=== PATIENT | female | born 1940 | race Hispanic/Latino ===

== ENCOUNTER 2017-09-30 17:44 | Inpatient (IN) | payer MEDICARE ==
[2017-09-30] MEDS ORDERED: Acetaminophen 500 MG TAB ONE (18:24)
[2017-09-30 18:33] LABS: #Basophils 0.1 thou/uL (0.0-0.2); #Lymphocytes 1.3 thou/uL (1.20-3.40); #Monocytes 0.6 thou/uL (0.11-0.59); #Neutrophils 9.8 thou/uL (1.40-6.50); %Basophils 0.6 % (0.0-1.0); %Eosinophils 0.2 % (0.0-10.0); %Lymphocytes 10.9 % (21.0-51.0); %Monocytes 5.1 % (0.0-10.0); %Neutrophils 83.1 % (42.0-75.0); Hemoglobin 8.6 g/dL (12.0-16.0); Mean Corpuscular HGB CONC 32.1 g/dL (32.0-36.0); Mean Corpuscular Hemoglobin 26.2 pg (27.0-31.0); Mean Corpuscular Volume 81.7 fL (78.0-98.0); Mean Platelet Volume 7.7 fL (7.4-10.4); Platelet Count 430 thou/uL (130-400); Red Blood Cell (RBC) Count 3.29 mill/uL (4.20-5.40); White Blood Cell (WBC) Count 11.8 thou/uL (4.8-10.8)
[2017-09-30 18:55] LABS: ALT (SGPT) Less than 7 U/L (8-55); AST (SGOT) 11 U/L (5-34); Albumin 3.6 g/dL (3.4-4.8); Alkaline Phosphatase 106 U/L (40-150); Anion Gap 15 mmol/L (10-20); BUN (Urea Nitrogen) 16 mg/dL (9.8-20.1); Bilirubin, Total 0.4 mg/dL (0.2-1.2); CK (CPK) 51 U/L (29-168); Calc. Creatinine Clearance 0 mL/min (70-130); Calcium 8.6 mg/dL (7.8-10.44); Carbon Dioxide 20 mmol/L (23-31); Chloride 105 mmol/L (98-107); Estimated GFR-MDRD 46; Globulin 3.5 g/dL (2.4-3.5); Glucose 105 mg/dL (83-110); Lipase 31 U/L (8-78); Potassium 3.8 mmol/L (3.5-5.1); Protein, Total 7.1 g/dL (6.0-8.3); Sodium 136 mmol/L (136-145)
[2017-09-30] MEDS ORDERED: cefTRIAXone\\ROCEPHIN 2 GM VIAL ONE (18:58)
[2017-09-30 18:59] LABS: CKMB 0.8 ng/mL (0-6.6); Troponin I 0.014 ng/mL (< 0.028)
--- NOTE | 2017-09-30 20:15 | RAD ---
AP VIEW OF THE CHEST: 09/30/17 INDICATION: History of shortness of breath. COMPARISON: Prior exam dated 09/23/06. FINDINGS: There is interstitial and air space opacity seen within the left mid lung and left lower lobe suspici ous for possible pneumonia. Recommend two view chest radiograph for further evaluation. The visualize d right lung is clear. Mild cardiomegaly is stable. No acute osseous abnormality is evident. IMPRESSION: Air space opacity within the left lung. Two view chest radiograph recommended. POS: NICK
[2017-09-30] MEDS ORDERED: Azithromycin 500 MG VIAL ONE (20:34)
[2017-09-30] MEDS ORDERED: Ondansetron ODT 4 MG TAB SL PRN (23:15)
[2017-09-30] MEDS ORDERED: Acetaminophen 325 MG TAB PO PRN (23:15)
[2017-09-30] MEDS ORDERED: Ondansetron HCl/PF 4 MG/2 ML Vial IVP PRN (23:15)
[2017-10-01 00:13] VITALS: BMI 31.0
[2017-10-01] MEDS ORDERED: Acetaminophen 325 MG TAB PO PRN (07:46)
[2017-10-01] MEDS ORDERED: Dextrose 50% Abboject 50 ML SYRINGE SLOW IVP PRN (07:52)
[2017-10-01] MEDS ORDERED: Dextrose 5% in Water 1,000 ML IV PRN (07:52)
[2017-10-01] MEDS ORDERED: Insulin Regular 300 UNITS/3 ML VIAL SC PRN (07:52)
[2017-10-01] MEDS: cefTRIAXone\\ROCEPHIN 1 GM in Sodium Chloride 0.9% 100 ML IVPB SCH (08:32)
[2017-10-01 08:42] LABS: CKMB 0.9 ng/mL (0-6.6); Troponin I 0.013 ng/mL (< 0.028)
[2017-10-01] MEDS ORDERED: DILTIAZEM HCL 90 MG PO SCH (09:00)
--- NOTE | 2017-10-01 09:40 | HP ---
HISTORY OF PRESENT ILLNESS: The patient is a 77-year-old female. She apparently was raking her yard yesterday where she became short of breath with exertion. The patient stated that she had shortness of breath while exerting herself just simply raking her yard. She states she has to stop a nd rest. This did relieve her shortness of breath. She denies any chest pain. She did note that he r neck did hurt during this time. She did not note any productive cough, fever, nausea, vomiting, di arrhea. She notes that at around 3 to 4 o'clock she became more short of breath just walking a short distance. She was brought to the emergency room. She was seen and evaluated in the ER. Her EKG di d reveal sinus tachycardia. She was found to be slightly anemic. Chest x-ray, possible left lower l obe pneumonia. Nonetheless, she was admitted to the hospital, begun on pneumonia protocol treatment with ceftriaxone and Zithromax. She notes no prior history of atherosclerotic coronary artery diseas e. She once again denies any cough, wheezing, no nasal congestion, runny nose, otherwise noted. She is now resting comfortably. She has noted no prior shortness of breath prior to this episode. ALLERGIES: She has no known allergies. CURRENT MEDICATIONS: Aspirin 81 mg daily, lovastatin 20 mg daily, metformin 1000 mg b.i.d., diltiaze m 90 mg t.i.d. PAST MEDICAL HISTORY: Positive for type 2 diabetes mellitus, hypertension, hypercholesterolemia. PAST SURGICAL HISTORY: Positive for cholecystectomy, right knee replacement surgery. SOCIAL/PERSONAL HISTORY: She is a . Her recently not too long ago. She is a form er smoker. She has not smoked in more than 10 years. Her children do live nearby. FAMILY HISTORY: Positive for atherosclerotic coronary artery disease and renal disease. REVIEW OF SYSTEMS: GASTROINTESTINAL: Negative. GENITOURINARY: Negative. CARDIOVASCULAR: Positive as above. RESPIRATORY: Positive as above. PHYSICAL EXAMINATION: VITAL SIGNS: Her temperature is 99.7, pulse 86, respirations 16, BP 146/66. GENERAL: She is alert, active, in no acute distress. HEENT: Normocephalic, atraumatic. Sclerae and conjunctivae clear. NECK: Supple, full range of motion, no masses. LUNGS: Clear. HEART: Reveals a regular rate and rhythm, no murmurs, gallops or rubs. ABDOMEN: Soft, nontender, bowel sounds are active. No hepatosplenomegaly is noted. There is no sean dence of rebound or guarding noted. EXTREMITIES: No clubbing, edema or cyanosis noted at this time. LABORATORY AND X-RAY FINDINGS: White blood count 11.8, hemoglobin 8.6, hematocrit 26.9. Sodium 136, potassium 3.8, chloride 105, CO2 of 20, BUN 16, creatinine 1.16, troponin 0.014 x1. Chest x-ray was fairly unremarkable. There is a suspicious opacity to the left lower lobe, possible pneumonia. EKG reveals sinus tachycardia without acute changes. IMPRESSION: 1. This is a 77-year-old female who presents with dyspnea upon exertion, this to me seems t o be more compatible with possible angina or anginal equivalent. 2. Anemia. 3. Some possibility or probability of pneumonia. 4. Type 2 diabetes mellitus. PLAN: 1. Discussed the findings with the patient. Feel the need for starting a cardiac workup. We will c onsult Cardiology, go ahead and schedule a nuclear stress testing. We will get additional cardiac en zymes prior to stress testing. 2. We will continue treatment with Zithromax and ceftriaxone at this time. 3. Further treatment will be dictated by response to cardiac stress test.
[2017-10-01] MEDS ORDERED: Regadenoson 0.4 MG/5 ML SYRINGE ONE (11:22)
[2017-10-01] MEDS: Aspirin 81 mg Enteric Coated Tablet PO SCH (12:56)
[2017-10-01] MEDS: metFORMIN 500 MG TAB PO SCH ×2 (12:56→16:55)
[2017-10-01] MEDS: Azithromycin 500 MG in Sodium Chloride 0.9% 250 ML 250 ML IVPB SCH (12:56)
--- NOTE | 2017-10-01 13:16 | NM ---
NUCLEAR MEDICINE MYOCARDIAL PERFUSION EVALUATION: CLINICAL HISTORY: A 77-year-old female. Dyspnea. RADIOPHARMACEUTICAL: Technetium 99m sestamibi, 30.1 millicuries if, administered at stress and rest. FINDINGS: There is reduced activity involving the mid to distal anteroseptum and the apex, which relatively fix ed. Evaluation of gated imaging does reveal hypokinesia of this region, which is supposed upon a dif fuse dyskinesia/hypokinesia, with a reduced LVEF of 30%. There is associated chamber enlargement of the left ventricle. IMPRESSION: 1. Finding most consistent with an area of scar, involving the mid to distal anterior septum, extend ing to the apex. No definite significant reversible defect to indicate ischemia. 2. Reduced left ventricular systolic function, with diminished left ventricular ejection fraction at 30%. POS: NICK
[2017-10-01] MEDS ORDERED: Furosemide 20 MG/2 ML VIAL SLOW IVP SCH (14:45)
[2017-10-01] MEDS ORDERED: Potassium Chloride 20 MEQ TAB PO SCH (14:45)
[2017-10-01] MEDS ORDERED: Carvedilol 3.125 MG TAB PO SCH (15:00)
--- NOTE | 2017-10-01 15:15 | CON ---
ADDENDUM DATE OF CONSULTATION: 10/01/2017 DATE OF ADMISSION: 09/30/2017 Please refer the notes already dictated by my nurse practitioner. INDICATION FOR CONSULTATION: A 77-year-old female with shortness of breath and abnormal stress test. HISTORY OF PRESENT ILLNESS: This lady, 77 years old, who has been out raking her yard, have been rel atively active in the past, had no history of coronary artery disease that we are aware of. Had no c ardiac problems in the past. She was out raking, came back because she was short of breath and fatig ued and she also had gone to the bathroom, walking back from the bathroom also noticed that she was s hortness of breath and she presented to the hospital. She also has a history of hypertension, hyperc holesterolemia, and diabetes. She did smoke in the past, but stopped about 20 years ago, previous to that smoked for about 10 years, about a pack a day. She otherwise has been relatively stable, but s he did subsequently come in and had a stress test, which shows what appears to be an old anterior api mukul scar. There was no evidence of ischemia at this time. No reversible ischemia. Ejection fractio n estimated about 30%. Her hemoglobin is about 8.6, hematocrit 26.9. Renal function shows a creatin ine of 1.16 with a BUN of 16. Cardiac enzymes are negative for any evidence of myocardial infarction . It is quite possible that she has suffered a myocardial infarction in the past and was a silent my ocardial infarction. Certainly this is not unheard of in someone who is a diabetic, but with a decre ased ejection fraction what appears to be a scar over the mid to distal anterior septum extending to the apex. I would advise her to undergo cardiac catheterization; however, she does appear to be sign ificantly anemic and given the fact that her hemoglobin is only 8, we may need to wait until the hemo globin is a little bit better prior to proceeding with a cardiac catheterization as this does not gabriella ear to be any acute issue in this patient. Her EKG shows a left bundle branch block, but a sinus rhy thm. For her past medical history, social history, family history, allergies, medications, please refer to the notes already dictated. PHYSICAL EXAMINATION: GENERAL: Reveals an elderly female who is in only mild distress at this time. She does appear to be short of breath during examination. VITAL SIGNS: Blood pressure 144/70, heart rate is in the 100s to 110s. She is afebrile, respiratory rate 16. HEENT: Shows head to be normocephalic and atraumatic. Carotid pulses are present. I did not hear a ny significant bruits. CHEST: Clear to auscultation without any rales, rhonchi or wheezing; however, breath sounds are some what decreased throughout. CARDIOVASCULAR: She has a slight tachycardia and appears to have an S3. Would certainly be compatib le with cardiomyopathy. ABDOMEN: Soft and nontender. Positive bowel sounds are present. EXTREMITIES: Show no clubbing, cyanosis or edema. I cannot palpate pedal or popliteal pulses. Femo ral pulses are decreased. I did not hear any significant bruits. NEUROLOGIC: The patient appears to be intact. IMPRESSION: 1. Probable silent myocardial infarction which is remote, but with a new onset congestive heart fail ure symptoms with shortness of breath and also left bundle branch block are uncertain as to whether o r not this is new or whether or not this is an ongoing problem for this lady with her diabetes. I stringer ve suggested a cardiac catheterization, but may need to wait until the hemoglobin is at least 10. We tried to determine whether or not why she has a hemoglobin of 8.6 and she may need some stool guaiac s performed to determine whether or not she has any ongoing gastrointestinal blood loss. Certainly s he needs to undergo heparin stent placement. She will need to have oral anticoagulation or antiplate let medication, which would make her bleeding symptoms worse. We discussed this with her primary car e physician, Dr. Ribeiro. 2. History of diabetes. This will be dealt with by primary care service. 3. Hypertension is under very good control at this time. 4. History of tobacco abuse. She has been abstinent for over 20 years. We will continue on her pre sent medications. She also has a history of what she says of asthma, shortness of breath. This may be ongoing problem and she is requesting something for breathing, but this may not be due to asthma, but appears to be more of perhaps even cardiac asthma in this patient, but I did not hear any wheezin g at this time, we will continue to follow the patient. I will obtain an echocardiogram for evaluati on, also the valvular structures and the left ventricular systolic function also.
--- NOTE | 2017-10-01 15:59 | RAD ---
CHEST TWO VIEWS: 10/01/17 HISTORY: Chest pain. Dyspnea. COMPARISON: 09/30/17. FINDINGS: The cardiac silhouette is unremarkable. Pulmonary vasculature is more engorged than on the prior stud y with increasing bilateral perihilar and left basilar infiltrate. Lungs are otherwise hyperinflated. Small amount of bilateral pleural fluid. Mediastinum is midline with aortic calcification. No eviden ce of pneumothorax. IMPRESSION: Pulmonary vascular congestion, possibly with superimposed left posterior basilar infiltrate. Clinical correlation regarding other signs and symptoms of left basilar pneumonitis is required. Please consi christian close radiographic followup after medical treatment to evaluate for clearing. Atherosclerosis. COPD. POS: NICK
[2017-10-01] MEDS ORDERED: GoLYTELY 4,000 ml Bottle PO SCH (19:00)
--- NOTE | 2017-10-01 19:28 | CON ---
DATE OF CONSULTATION: 10/01/2017 PRIMARY CARE PHYSICIAN: Dr. Fletcher Ribeiro. PRIMARY LABORATORY MACHINIST: Dr. Yesi Moore REFERRING PHYSICIAN: Dr. Fletcher Ribeiro. REASON FOR CARDIOLOGY CONSULT: Dyspnea. HISTORY OF PRESENT ILLNESS: Ms. Bowden is very pleasant 77-year-old female with a significant history of hypertension, hyperlipidemia, type 2 diabetes, and rheumatoid arthritis. She lives with her daughter and stayed busy baby sitting her her grandchildren and great grandchildren until yesterday. Yesterday, when she was walking at the outside yard, she started having shortness of breath which was getting worse. Due to the symptoms, the patient's daughter brought the patient to the emergency department for further evaluation and treatment. She was found to have pneumonia. Moreover, due to history of diabetes, hypertension, and ex-smoker, the patient underwent stress test today, which shows old anterior apical scar, but no evidence of reversible ischemia. However, the patient's ejection fraction shows 30%. Prior to this admission, the patient has a history of hypertension, hypercholesteremia, hyperlipidemia, diabetes type 2, and ex-smoker. She never has any cardiac workup in the past. The patient was found to have a hemoglobin level at 8.6. She reported that she has not checked her blood work for a couple of years, but she states that she loves eating ice every day. She states she can finish big bag of ice within 1 day. The patient denies dizziness, lightheadedness, palpitation. No fluttering or chest pain or discomfort in her chest, numbness to the left upper arm, or any other cardiac complaints prior to this admission and during the initial Cardiology consult assessment. PAST MEDICAL HISTORY: 1. Hypertension. 2. Hyperlipidemia. 3. Diabetes type 2. 4. Rheumatoid arthritis. She uses a cane to walk. PAST SURGICAL HISTORY: 1. Cataract surgery. 2. Right knee replacement. 3. Cholecystectomy. FAMILY HISTORY: The patient's mother has a history of hypertension and congestive heart failure and the all patient's 6 children have medical history of diabetes. Patient's one of sons underwent CABG in 2016. SOCIAL HISTORY: The patient is an ex-smoker. She used to smoke one pack a day. She quit about 20 years ago. She denied ETOH abuse or illicit drug abuse. She drinks at least 12 cup of coffee a day and eating ice all day, but she is relatively active, she usually do babysit her grand and great grandchildren at home. ALLERGIES: She is allergic to SHELLFISH. HOME MEDICATIONS: 1. Metformin 1000 mg twice a day. 2. Lovastatin 40 mg once a day. 3. Diltiazem 90 mg 3 times a daily. 4. Aspirin 81 mg once a day. REVIEW OF SYSTEMS: The patient review of systems was negative, unless otherwise mentioned in the HPI. She is very active. She denies any blood in the stool or urine. She used a cane to walk. PHYSICAL EXAMINATION: VITAL SIGNS: Blood pressure 144/70, pulse is 118, sinus tachycardia, temperature 98.2, respiratory 18, O2 sat 94% on room air. GENERAL: Well-nourished, well-developed in no acute distress. HEAD: Atraumatic, normocephalic. HEENT: Eyes, extraocular muscle movement intact. She said she had to change her glasses. ENT: Mouth lissette and the oral mucosa moist without lesion. NECK: No JVD. Neck supple. Normal range of motion. Carotid pulses are present without bruits or thrills. LUNGS: Clear to auscultation bilaterally. No rub or rales noted. CARDIOVASCULAR: regular rhythm and rate. Normal S1, S2. There is no S3, S4. No murmur; however S3 noted. EXTREMITIES: There are 2+ pulses in bilateral lower extremities and no edema or no discoloration to the bilateral lower extremities. ABDOMEN: Nontender, no mass to palpate, nondistended. Bowel sounds are present. MUSCULOSKELETAL: The patient is able to move all extremities. SKIN: No lesions or bruise noted. NEUROLOGIC: Patient is alert x4 and nonfocal. LABORATORY DATA: A 12-lead EKG in ER showed sinus tachycardia with left bundle branch block. Chest x-ray, the patient's chest x-ray on 09/30/2017 shows airspace opacity within the left lung and the patient just had two view chest x- ray and results are pending at this moment. The patient's stress test shows the score to the mid to distal anterior septum extended to the apex, but no significant reversible ischemia with an ejection fraction of 30%. ASSESSMENT: 1. Dyspnea on exertion. This is possible due to acute on chronic systolic congestive heart failure. Echocardiogram was ordered, but that result is pending at this moment. Dr. Moore suggested this patient to have a cardiac catheterization; however, due to low hemoglobin level and elevated creatinine level, the patient is not a good candidate for the cardiac catheterization at this moment, The patient's BNP was more than 3000 today. The patient received the 10 mg IV Lasix today. Although, the patient denies any shortness of breath or edema to the lower extremity or abdomen bloating, may be beneficial to schedule Lasix or diuretics as appropriate if the patient's symptoms beginning worsen. The patient is on carvedilol on this moment, but no ACACIA inhibitor at this moment due to elevated creatinine level. 2. Hypertension. The patient's blood pressure is very elevated with tachycardia. The diltiazem was resumed from today and Coreg 3.125 mg twice a day was started from today. 3. Diabetes type 2. The patient on a.c. and h.s. blood glucose check with sliding scale insulin order with metformin. 4. Hyperlipidemia. The patient is on atorvastatin 10 mg once a day. 5. Pneumonia. The patient's one view chest x-ray reviewed, the patient had a possible pneumonia to the left lung. The patient just had 2-view chest x-ray and the result is pending at this moment. She is on antibiotic which was managed by the patient's primary care doctor. Thank you very much for allowing the Cardiology Service to participate in the care of this patient. We will follow along the doctors and make a medical recommendation as appropriate. HUGH
[2017-10-01] MEDS ORDERED: LOVASTATIN 40 MG PO SCH (21:00)
--- NOTE | 2017-10-01 21:34 | CON ---
DATE OF CONSULTATION: 10/01/2017 GI INPATIENT CONSULTATION NOTE REQUESTING PHYSICIAN: Dr. Fletcher Ribeiro. REASON FOR CONSULTATION: Anemia. HISTORY OF PRESENT ILLNESS: Simeon Bowden is a very pleasant 77-year-old woman, who was admitted to the hospital last night. She reports symptoms came on fairly acutely yesterday. She was in the mid dle of her chores around the house and suddenly started to have dyspnea on exertion. This was alarmi ng to her and prompted her presentation. This was not associated with any cough or any fever, no [place], vomiting or diarrhea. In the ER, she was found to be in sinus tachycardia and a chest x-ray tima wed probable left-sided pneumonia. She was started on antibiotics. Other laboratory studies were re markable for hemoglobin of 8.6. Note, hemoglobin was 9.7 in February of this year. This is a normocy tic anemia with MCV 81.7. The patient has been receiving antibiotics. She has been seen by Cardiolo gy and had a nuclear stress test demonstrating a left ventricular ejection fraction of 30%, but no ev idence of reversible ischemia, possible prior infarct. Cardiac catheterization is being considered. After further anemia workup and stabilization, echocardiogram is planned. The patient has been n.p. o. today. She tells me she has never had an EGD or colonoscopy. She has never had any gastrointestinal symptom s. She denies any abdominal pain, nausea, vomiting, diarrhea or constipation. Her bowel movements a re normal. She denies any melena or hematochezia or any other overt bleeding from anywhere. She is not on any special diet. She takes aspirin 81 mg daily, but no other antiplatelet agents or anticoag ulation. REVIEW OF SYSTEMS: Full review of systems including constitutional, head, eyes, ears, nose, throat, GI, , cardiovascular, respiratory, musculoskeletal, and neurologic systems is negative except as no christian in the HPI. PAST MEDICAL HISTORY: Diabetes, type 2; hypertension; hyperlipidemia; cholecystectomy; right knee re placement. ALLERGIES: No known drug allergies. OUTPATIENT MEDICATIONS: Aspirin 81 mg daily, lovastatin, metformin, diltiazem. SOCIAL HISTORY: The patient quit smoking over 10 years ago. She is recently . Her son is wi th her here today. FAMILY HISTORY: Negative for gastrointestinal malignancy. PHYSICAL EXAMINATION: VITAL SIGNS: Temperature 98.2, pulse 118, blood pressure 144/70, 94% oxygen saturation on room air. GENERAL: Elderly 77-year-old woman, sitting up in bed comfortably, in no distress. SKIN: She is a bit pale, no jaundice, no rash visible or palpable. EYES: No scleral icterus. Extraocular movements intact. ENT: Mucous membranes moist, no oral lesions. LYMPH: No submandibular or supraclavicular lymphadenopathy. THYROID: Nontender to palpation. HEART: Regular rate and rhythm. LUNGS: Some decreased breath sounds in the left side, but no wheezing, no respiratory distress. ABDOMEN: Bowel sounds present, soft and nontender to palpation throughout. No masses or organomegal y appreciated. EXTREMITIES: No peripheral edema. VESSELS: Radial pulses 2+ bilaterally. NEUROLOGICAL: Cranial nerves II-XII intact bilaterally. No focal deficits. LABORATORY DATA: Hemoglobin 8.6, this is down from 9.7 in February of this year; MCV is just normal a t 81.7; WBC 11.8; platelets 430. Sodium 136, potassium 3.8, BUN 16, creatinine 1.16. Lactic acid 1. 1, troponin negative. Lipase 31. BNP is elevated to 3215. LFTs are all normal with total bilirubin 0.4, alkaline phosphatase 106, AST 11, ALT 7, albumin 3.6. IMAGING STUDIES: Chest x-ray shows airspace opacity in the left lung field. Nuclear stress test dem onstrated left ventricular ejection fraction 30%. There is what appears to be apical scarring, but n o reversible ischemia. ASSESSMENT AND PLAN: 1. Anemia, unclear chronicity and etiology, with no primary gastrointestinal symptoms or overt gastr ointestinal bleeding. 2. Left-sided pneumonia, on antibiotics. 3. New onset congestive heart failure, being worked up by Cardiology. The etiology and chronicity of her anemia are unclear. The MCV is on the low side of normal. I will order iron studies, vitamin B12 and folic acid levels. There has been no overt gastrointestinal ble eding, but occult gastrointestinal bleeding lesion would certainly be high on the differential. She has never undergone endoscopy before. She has been n.p.o. today, so I would recommend bowel preparat ion this evening followed by EGD and colonoscopy tomorrow. The patient understands and agrees to pro ceed. Thank you for the consultation. Please call any time with questions or concerns.
[2017-10-01] MEDS: Atorvastatin Calcium 10 MG TAB PO SCH (21:35)
[2017-10-02 06:04] LABS: Anion Gap 12 mmol/L (10-20); BUN (Urea Nitrogen) 17 mg/dL (9.8-20.1); Calc. Creatinine Clearance 54 mL/min (70-130); Calcium 8.4 mg/dL (7.8-10.44); Carbon Dioxide 25 mmol/L (23-31); Chloride 101 mmol/L (98-107); Estimated GFR-MDRD 49; Glucose 93 mg/dL (83-110); Iron 11 ug/dL (50-170); Iron Binding Capacity, Total 311 mcg/dL (265-497); Potassium 3.6 mmol/L (3.5-5.1); Sodium 134 mmol/L (136-145)
[2017-10-02 06:35] LABS: Folate (Folic Acid) 12.8 ng/mL (7.0-31.4)
[2017-10-02] MEDS: Carvedilol 3.125 MG TAB PO SCH ×2 (07:42→17:45)
[2017-10-02] MEDS: cefTRIAXone\\ROCEPHIN 1 GM in Sodium Chloride 0.9% 100 ML IVPB SCH (07:42)
--- NOTE | 2017-10-02 07:59 | PRG ---
DATE OF SERVICE: 10/02/2017 Ms. Bowden is resting comfortably. She has had no chest pain or shortness of breath. PHYSICAL EXAMINATION: VITAL SIGNS: Temperature 98.3, BP 119/58. LUNGS: Clear. HEART: Reveals no murmur. LABORATORY: Sodium 134, potassium 3.6, BUN 1.09. B12 109, folic acid is 12.8. Stool guaiac is nega tive. IMPRESSION: This is a 77-year-old female who presented with shortness of breath, the most likely et iology of this is now cardiac. She also has anemia at this time. PLAN: She will be undergoing colonoscopy and EGD today to further evaluate her anemia. She is also B12 deficient. Further recommendations regarding her cardiac status will be made once her colonoscop y and EGD are completed.
[2017-10-02] MEDS: metFORMIN 500 MG TAB PO SCH ×2 (09:12→16:00)
[2017-10-02] MEDS ORDERED: Lidocaine Viscous Sol 2% 15 ml UD Cup ONE (10:39)
[2017-10-02] MEDS ORDERED: Lidocaine 1% PF 5 ML VIAL ONE (11:35)
[2017-10-02] MEDS ORDERED: PROPOFOL 200 MG/20 ML VIAL ONE (11:35)
--- NOTE | 2017-10-02 12:00 | PDOC.CTH ---
<Lia Baldwin - Last Filed: 10/02/17 11:58> Cardiology Progress Note - Subjective The pt seen and examined. No overnight events. No cardiac complaints. The questions related to CHF were answered to the pt and family. - Objective Vital Signs Temp Pulse Resp BP BP Pulse Ox 10/02/17 07:39 98.9 F 96 19 138/88 95 10/02/17 04:17 98.3 F 82 20 119/58 L 97 Weight 169 lb 11.2 oz 10/01/17 10/02/17 10/03/17 06:59 06:59 06:59 Intake Total 480 1430 Output Total 500 Balance -20 1430 - Physical Examination General/Neuro: alert & oriented x3 Neck: no JVD present Lungs: CTA Heart: RRR Abdomen: soft Extremities: other: (No edema) - Telemetry Telemetry Rhythm: SR 60s - Labs Result Diagrams: 09/30/17 18:22 10/02/17 05:28 Troponin/CKMB CK-MB (CK-2) 0.9 ng/mL (0-6.6) 10/01/17 08:07 Troponin I 0.013 ng/mL (< 0.028) 10/01/17 08:07 - Assessment/Plan 1. Acute on chronic systolic HF - stable with RA. On Bblocker. Start Lisinopirl 2.5mg qd from today. Possible start diuretic. Echo result is pending at this moment. 2. Abnormal stress test result - Stress test on 10/01/17 showed old anterior scar, no evidence of ischemia, and EF 30%. Holding Cardiac cath due to Hgb 8.6. She is on Bblocker, ASA, and Statin. Will start Lisinopril 2.5mg qd. 3. HTN - Will start Lisinopril 2.5mg qd. 4. Hyperlipidemia - on Statin 5. DM type 2 - managed by PCP 6. Anemia - Plan for EGD and Colonoscopy by GI service. MAR reviewed Review of Systems - Review of Systems Constitutional: reports: no symptoms reported EENTM: reports: no symptoms reported Respiratory: reports: no symptoms reported Cardiac (ROS): reports: no symptoms reported ABD/GI: reports: no symptoms reported : reports: no symptoms reported Musculoskeletal: reports: no symptoms reported <Paul Moore - Last Filed: 10/02/17 13:37> Cardiology Progress Note - Objective Vital Signs Temp Pulse Resp BP BP Pulse Ox 10/02/17 12:18 97.4 F L 74 18 122/56 L 96 10/02/17 07:45 98.9 F 96 19 96 10/02/17 07:39 98.9 F 96 19 138/88 95 10/02/17 04:17 98.3 F 82 20 119/58 L 97 Weight 169 lb 11.2 oz 10/01/17 10/02/17 10/03/17 06:59 06:59 06:59 Intake Total 480 1430 Output Total 500 Balance -20 1430 - Labs Result Diagrams: 09/30/17 18:22 10/02/17 05:28 Troponin/CKMB CK-MB (CK-2) 0.9 ng/mL (0-6.6) 10/01/17 08:07 Troponin I 0.013 ng/mL (< 0.028) 10/01/17 08:07 - Assessment/Plan pt. seen and eval. by me. i agree with the a/P by the ALGOLOGY TEACHER. I think that she is safe to go home with a Life-Vest , get the Hgb. up to at least 10 if possible and twin for an outpt. cath in the next 2-3 weeks.
[2017-10-02] MEDS: Aspirin 81 mg Enteric Coated Tablet PO SCH (12:25)
[2017-10-02] MEDS: Lisinopril 2.5 MG TAB PO SCH (12:25)
[2017-10-02] MEDS: Azithromycin 500 MG in Sodium Chloride 0.9% 250 ML 250 ML IVPB SCH (12:25)
--- NOTE | 2017-10-02 12:51 | OP ---
DATE OF PROCEDURE: 10/02/2017 GI ENDOSCOPY NOTE SURGEON: Segundo Olvera M.D. BIT SHARPENER SURGEON: None. PROCEDURES: 1. Esophagogastroduodenoscopy, diagnostic. 2. Colonoscopy with snare polypectomy. INDICATIONS: 1. Anemia. 2. The patient has never undergone previous EGD or colonoscopy. MEDICATIONS: See anesthesia record. FINDINGS: After discussion of the risks, benefits and alternatives of the procedure, informed consen t was obtained and witnessed. Pre-endoscopic cardiopulmonary examination was satisfactory. Timeout was performed before sedation was achieved. Sedation was achieved with anesthesia assistance in the endoscopy unit. A Pentax adult upper endoscope was placed into the oropharynx and passed through the cricopharyngeus under direct visualization. The esophageal mucosa appeared normal throughout with a normal-appearing Z-line. The endoscope was advanced into the stomach. Forward and retroflexed view s of the entire gastric mucosa were obtained. The gastric mucosa appeared normal. The endoscope was advanced through the pylorus and into the first and second portions of the duodenum, which also appe ared normal. The upper endoscope was completely withdrawn and the patient was repositioned. Digital rectal exam was performed which was unremarkable. A Pentax adult colonoscope was inserted in to the anus and passed forward to the cecum in the usual fashion. The cecal base was identified by t he appendiceal orifice as well as the ileocecal valve. The terminal ileum was not intubated. The co lonoscope was slowly withdrawn in a gradual and circumferential manner with careful examination of th e entire colonic mucosa. The quality of the prep was good. In the cecum, there was a flat spreading polyp 1 cm in diameter. This was completely removed with hot snare and retrieved for pathology. In the ascending colon, there were 3 smaller polyps measuring from 3-5 mm in diameter. These were comp letely removed with hot snare and retrieved for pathology. In the sigmoid colon, there was one more small polyp measuring about 3 mm in diameter. This was completely removed with hot snare and retriev ed for pathology. There was some scattered diverticulosis throughout the colon. Retroflexion in the rectum demonstrated internal hemorrhoids. The colonoscope was then completely withdrawn and the pat ient allowed to recover. The patient tolerated the procedure well. There were no immediate post-pro cedure complications. IMPRESSION: 1. Normal esophagogastroduodenoscopy. 2. Scattered colonic diverticulosis. 3. Internal hemorrhoids. 4. A 1-cm cecal polyp, completely removed with hot snare and retrieved for pathology. 5. Three diminutive polyps in the ascending colon, all completely removed with hot snare and retriev ed for pathology. 6. Diminutive sigmoid polyp, removed with hot snare and retrieved for pathology. RECOMMENDATIONS: 1. Follow up pathology on the colon polyps. 2. Consider surveillance colonoscopy at a 3-year interval, depending on the patient's overall health status. 3. Replace vitamin B12. GI will sign off at this time. Please call back anytime with questions or concerns.
--- NOTE | 2017-10-02 18:26 | PRG ---
DATE OF SERVICE: 10/02/2017 Ms. Bowden is doing well. She had her colonoscopy today. No evidence of any visible lesions will b e there because of her anemia. She spoke with Dr. Moore. She feels like the patient could be d ischarged safely home with LifeVest. She is trying to arrange this. I have modified her medications . I have written her prescription. She will be discharged home tomorrow if everything is going well . I will check her out to Dr. Tena. I have rewritten most of her prescriptions. She is to contin ue on following home medicines, which is metformin 1000 mg p.o. b.i.d., lisinopril 2.5 mg daily. I h ave stopped her diltiazem. I have written other medications that she will be on, hopefully this will take care of. Her followup instructions were given to her granddaughter. She will see me next or Thursday for a vitamin B12 injection. She will be started on ferrous gluconate for replacement therapy.
[2017-10-02] MEDS ORDERED: Carvedilol 3.125 MG TAB PO SCH (21:00)
[2017-10-02] MEDS: Atorvastatin Calcium 10 MG TAB PO SCH (21:06)
[2017-10-03] MEDS ORDERED: Ferrous Gluconate 324 MG TAB PO SCH (08:00)
[2017-10-03] MEDS: Carvedilol 3.125 MG TAB PO SCH ×2 (08:43→18:13)
[2017-10-03] MEDS: metFORMIN 500 MG TAB PO SCH ×2 (08:44→18:13)
[2017-10-03] MEDS ORDERED: Azithromycin 250 MG TAB PO SCH (09:00)
[2017-10-03] MEDS: Aspirin 81 mg Enteric Coated Tablet PO SCH (09:55)
--- NOTE | 2017-10-03 11:53 | PDOC.CTH ---
Cardiology Progress Note - Subjective She is doing well. No new issues or complaints. - Objective Vital Signs Temp Pulse Resp BP BP Pulse Ox 10/03/17 08:50 98.8 F 91 18 138/63 95 10/03/17 04:00 98.4 F 82 16 134/76 96 Weight 169 lb 11.2 oz 10/02/17 10/03/17 10/04/17 06:59 06:59 06:59 Intake Total 1430 Balance 1430 - Physical Examination General/Neuro: alert & oriented x3, NAD Neck: no JVD present Lungs: CTA, unlabored respirations Heart: RRR Abdomen: NT/ND - Telemetry Telemetry Rhythm: NSR - Labs Result Diagrams: 09/30/17 18:22 10/02/17 05:28 Troponin/CKMB CK-MB (CK-2) 0.9 ng/mL (0-6.6) 10/01/17 08:07 Troponin I 0.013 ng/mL (< 0.028) 10/01/17 08:07 - Assessment/Plan 1. Acute on chronic systolic HF - Improved. 2. Possible CAD based of an abnormal stress test. No LHC for now due to anemia. On Bblocker, ACEI, ASA, and Statin. 3. HTN 4. Hyperlipidemia - on Statin 5. DM type 2 - managed by PCP 6. Anemia - Plan for EGD and Colonoscopy by GI service. 7. Dilated Cardiomyopathy. EF at 30% PLAN: - Home in current meds from cardiac perspective once lifevest set up completed.
[2017-10-03] MEDS: Lisinopril 2.5 MG TAB PO SCH (12:21)
[2017-10-03] MEDS ORDERED: Heparin 0 ML ONE (13:54)
[2017-10-03 17:45] VITALS: BP 145/68; TEMP 98.6
--- NOTE | 2017-10-04 19:03 | DIS ---
DATE OF ADMISSION: 09/30/2017 DATE OF DISCHARGE: 10/03/2017 ADMITTING DIAGNOSIS: Shortness of breath. DISCHARGE DIAGNOSES: Acute on chronic systolic heart failure with an EF of 30%-35%, abnormal stress test, hypertension, hyperlipidemia, type 2 diabetes, pernicious anemia with B12 deficiency. CONSULTATIONS: Cardiology and Gastroenterology. HOSPITAL COURSE: The patient is a 77-year-old female, patient of ana [place] ho was having acute onset of chest pain and dyspnea while raking leaves outside. Brought to the [facility] room. In initial workup was assumed to be pulmonary in etiology with slight amount of effusion in the lung bases, but on further investigation, it turned out to be cardiac in origin. The patient was found to be significantly anemic with hemoglobin at 8.6. Ultrasound echo of the heart showed an EF of 30%, had a chemical stress which showed no evidence of ischemia, but did show an old anterior scar with some hypokinesis. The patient had a complete endoscopy with Dr. Olvera. He found no source for any bleeding, but did find her B12 level to be low. She had a couple of polyps removed in her co carmelo, but he said those were could not be a source of bleeding. So, at time of discharge, the patient was given a LifeVest per Dr. Moore' orders. She was started on lisinopril and statin. She was maint ained on her diabetes medicines per Dr. Ribeiro, and at discharge, she was to follow up with Dr. Ribeiro in 1-2 days to start B12 injections and she will follow up with Dr. Moore in 1-2 weeks with the vest. Discharge medicines include the lisinopril 2.5 mg a day, ferrous gluconate 324 mg twice a day . He also stopped her diltiazem and her oral B12 and other medications are metformin 1000 mg twice a day which I believe will be held due to her recent heart failure. She is to follow up with Dr. Ribeiro this week and see Dr. Moore in a week or two.
== END 2017-10-03 20:05 | disposition home or self-care (01) | DRG 293 ==
LOC: ERS 17:44 → 2NO 23:14
PROVIDERS: ADMIT Family Medicine; ATTEND Family Medicine
PROC: 0DJ08ZZ Inspection of Upper Intestinal Tract, Via Natural or Artificial Opening Endoscopic (ICD-10-PCS; principal; 2017-10-02)
PROC: 0DBK8ZX Excision of Ascending Colon, Via Natural or Artificial Opening Endoscopic, Diagnostic (ICD-10-PCS; 2017-10-02)
PROC: 0DBN8ZX Excision of Sigmoid Colon, Via Natural or Artificial Opening Endoscopic, Diagnostic (ICD-10-PCS; 2017-10-02)
PROC: 0DBH8ZX Excision of Cecum, Via Natural or Artificial Opening Endoscopic, Diagnostic (ICD-10-PCS; 2017-10-02)
DX: I11.0 Hypertensive heart disease with heart failure (principal); I50.23 Acute on chronic systolic (congestive) heart failure; E11.9 Type 2 diabetes mellitus without complications; D64.9 Anemia, unspecified; K63.5 Polyp of colon; K57.30 Diverticulosis of large intestine without perforation or abscess without bleeding; K64.8 Other hemorrhoids; E53.8 Deficiency of other specified B group vitamins; M06.9 Rheumatoid arthritis, unspecified; E78.5 Hyperlipidemia, unspecified; Z79.84 Long term (current) use of oral hypoglycemic drugs; Z79.82 Long term (current) use of aspirin; Z87.891 Personal history of nicotine dependence; Z96.651 Presence of right artificial knee joint; Z90.49 Acquired absence of other specified parts of digestive tract; Z82.49 Family history of ischemic heart disease and other diseases of the circulatory system
CPT/HCPCS: 36415; 36416; 71045; 71046; 78452; 80048; 80053; 82274; 82553; 82607; 82728; 82746; 83540; 83550; 83605; 83690; 83880; 84484; 85025; 87040; 88305; 93005; 93017; 93306; 93798; 94640; 94760; 96365; 96367; A4216; A9500; J0456; J0696; J1644; J1940; J2001; J2704; J2785; J7050; J7620

== ENCOUNTER 2017-11-03 14:30 | Emergency (ER) | payer MEDICARE ==
[2017-11-03 15:19] LABS: #Eosinphils 0.1 thou/uL (0.0-0.7); #Lymphocytes 1.3 thou/uL (1.20-3.40); #Monocytes 0.3 thou/uL (0.11-0.59); #Neutrophils 5.8 thou/uL (1.40-6.50); %Basophils 0.5 % (0.0-1.0); %Eosinophils 0.9 % (0.0-10.0); %Lymphocytes 16.8 % (21.0-51.0); %Monocytes 4.1 % (0.0-10.0); %Neutrophils 77.7 % (42.0-75.0); Hemoglobin 8.9 g/dL (12.0-16.0); Mean Corpuscular HGB CONC 32.6 g/dL (32.0-36.0); Mean Corpuscular Hemoglobin 26.4 pg (27.0-31.0); Mean Corpuscular Volume 81.1 fL (78.0-98.0); Mean Platelet Volume 8.3 fL (7.4-10.4); Platelet Count 462 thou/uL (130-400); RBC Distribution Width 14.1 % (11.5-14.5); Red Blood Cell (RBC) Count 3.36 mill/uL (4.20-5.40); White Blood Cell (WBC) Count 7.4 thou/uL (4.8-10.8)
[2017-11-03 15:49] LABS: CKMB 1.1 ng/mL (0-6.6); Troponin I Less than 0.010 ng/mL (< 0.028)
[2017-11-03 16:12] LABS: ALT (SGPT) Less than 7 U/L (8-55); AST (SGOT) 14 U/L (5-34); Albumin 3.9 g/dL (3.4-4.8); Alkaline Phosphatase 77 U/L (40-150); Anion Gap 14 mmol/L (10-20); BUN (Urea Nitrogen) 19 mg/dL (9.8-20.1); Bilirubin, Total 0.5 mg/dL (0.2-1.2); Calc. Creatinine Clearance 0 mL/min (70-130); Calcium 9.1 mg/dL (7.8-10.44); Carbon Dioxide 17 mmol/L (23-31); Chloride 108 mmol/L (98-107); Estimated GFR-MDRD 48; Globulin 3.7 g/dL (2.4-3.5); Glucose 96 mg/dL (83-110); Potassium 4.7 mmol/L (3.5-5.1); Protein, Total 7.6 g/dL (6.0-8.3); Sodium 134 mmol/L (136-145)
[2017-11-03] MEDS ORDERED: predniSONE 20 MG TAB ONE (16:13)
--- NOTE | 2017-11-03 16:13 | RAD ---
PORTABLE AP CHEST X-RAY 11/03/17 HISTORY: Shortness of breath and wheezing. COMPARISON: 10/01/17. FINDINGS: Metallic densities overlie the chest related to patient's Life vest which was unable to be removed. T he cardiac silhouette and pulmonary vasculature are within normal limits. Patchy air space opacities noted within the lung bases on the prior exam have resolved. Interstitial densities are mildly promi nent but similar to the prior study. No new areas of consolidation or pleural fluid is seen. No other interval change. IMPRESSION: Improvement in parenchymal air space opacities at each lung base with stable mild increased interstit ial densities. No definite acute cardiopulmonary process is present. POS: [facility]
== END 2017-11-03 18:26 | disposition home or self-care (01) ==
LOC: ERS 14:30
DX: J45.901 Unspecified asthma with (acute) exacerbation (principal); I10 Essential (primary) hypertension; E11.9 Type 2 diabetes mellitus without complications; Z87.891 Personal history of nicotine dependence; Z79.82 Long term (current) use of aspirin; Z79.84 Long term (current) use of oral hypoglycemic drugs; Z79.899 Other long term (current) drug therapy
CPT/HCPCS: 71045; 80053; 82553; 83880; 84484; 85025; 93005; 94640; 94760; J7506; J7620

== ENCOUNTER 2017-12-03 09:49 | Emergency (ER) | payer MEDICARE ==
--- NOTE | 2017-12-03 10:28 | RAD ---
PA CHEST: History: Dyspnea. Chest pain. Comparison: 11-03-17 FINDINGS/IMPRESSION: Mild cardiomegaly. Vascular congestion and interstitial prominence suggests mild edema. Small effusio ns. No confluent infiltrate or consolidation. POS: [facility]
[2017-12-03 10:52] LABS: #Lymphocytes 0.8 thou/uL (1.20-3.40); #Monocytes 0.3 thou/uL (0.11-0.59); #Neutrophils 8.3 thou/uL (1.40-6.50); %Basophils 0.3 % (0.0-1.0); %Eosinophils 0.2 % (0.0-10.0); %Monocytes 2.8 % (0.0-10.0); %Neutrophils 88.6 % (42.0-75.0); Hemoglobin 9.7 g/dL (12.0-16.0); Mean Corpuscular HGB CONC 30.9 g/dL (32.0-36.0); Mean Corpuscular Volume 80.6 fL (78.0-98.0); Mean Platelet Volume 8.2 fL (7.4-10.4); Platelet Count 534 thou/uL (130-400); RBC Distribution Width 14.8 % (11.5-14.5); Red Blood Cell (RBC) Count 3.88 mill/uL (4.20-5.40); White Blood Cell (WBC) Count 9.4 thou/uL (4.8-10.8)
[2017-12-03 11:11] LABS: ALT (SGPT) 13 U/L (8-55); AST (SGOT) 22 U/L (5-34); Alkaline Phosphatase 88 U/L (40-150); Anion Gap 16 mmol/L (10-20); BUN (Urea Nitrogen) 17 mg/dL (9.8-20.1); Bilirubin, Total 0.6 mg/dL (0.2-1.2); CK (CPK) 41 U/L (29-168); Calc. Creatinine Clearance 0 mL/min (70-130); Calcium 9.2 mg/dL (7.8-10.44); Carbon Dioxide 17 mmol/L (23-31); Chloride 107 mmol/L (98-107); Estimated GFR-MDRD 46; Globulin 3.5 g/dL (2.4-3.5); Glucose 142 mg/dL (83-110); Potassium 4.7 mmol/L (3.5-5.1); Protein, Total 7.5 g/dL (6.0-8.3); Sodium 135 mmol/L (136-145)
[2017-12-03 11:14] LABS: CKMB 1.9 ng/mL (0-6.6); Troponin I 0.022 ng/mL (< 0.028)
== END 2017-12-03 12:45 | disposition home or self-care (01) ==
LOC: ERS 09:49
DX: I42.9 Cardiomyopathy, unspecified (principal); E11.9 Type 2 diabetes mellitus without complications; E78.5 Hyperlipidemia, unspecified; I10 Essential (primary) hypertension; Z87.891 Personal history of nicotine dependence; Z79.82 Long term (current) use of aspirin; Z79.84 Long term (current) use of oral hypoglycemic drugs; Z79.899 Other long term (current) drug therapy
CPT/HCPCS: 71045; 80053; 82550; 82553; 82728; 83540; 83550; 83880; 84484; 85025; 93005; 94640; J7620

== ENCOUNTER 2018-01-03 12:16 | Inpatient (IN) | payer MEDICARE ==
[2018-01-03 13:13] LABS: Hemoglobin 11.4 g/dL (12.0-16.0); Mean Corpuscular HGB CONC 31.3 g/dL (32.0-36.0); Mean Corpuscular Hemoglobin 27.6 pg (27.0-31.0); Mean Corpuscular Volume 88.2 fL (78.0-98.0); Platelet Count 324 thou/uL (130-400); RBC Distribution Width 20.6 % (11.5-14.5); Red Blood Cell (RBC) Count 4.14 mill/uL (4.20-5.40); White Blood Cell (WBC) Count 5.3 thou/uL (4.8-10.8)
[2018-01-03 13:34] LABS: #Eosinphils 0.1 thou/uL (0.0-0.7); #Lymphocytes 0.7 thou/uL (1.20-3.40); #Monocytes 0.3 thou/uL (0.11-0.59); #Neutrophils 4.2 thou/uL (1.40-6.50); %Basophils 0.7 % (0.0-1.0); %Eosinophils 1.3 % (0.0-10.0); %Lymphocytes 13.8 % (21.0-51.0); %Monocytes 4.8 % (0.0-10.0); %Neutrophils 79.4 % (42.0-75.0); Acanthocytes SLIGHT = 1-5 cells (100X) (None Seen); Anisocytosis SLIGHT = 6-15 cells (100X) (0-5/hpf); Elliptocytes SLIGHT = 2-5 cells (100X) (0-1/hpf); MDiff Complete? YES; PLT Morphology Comment Appears Adequate; Tear Drops SLIGHT = 2-5 cells (100X) (0-1/hpf)
[2018-01-03 13:37] LABS: ALT (SGPT) 23 U/L (8-55); AST (SGOT) 20 U/L (5-34); Alkaline Phosphatase 70 U/L (40-150); Anion Gap 16 mmol/L (10-20); BUN (Urea Nitrogen) 16 mg/dL (9.8-20.1); Bilirubin, Total 0.6 mg/dL (0.2-1.2); CK (CPK) 31 U/L (29-168); Calc. Creatinine Clearance 0 mL/min (70-130); Calcium 9.3 mg/dL (7.8-10.44); Carbon Dioxide 19 mmol/L (23-31); Chloride 106 mmol/L (98-107); Estimated GFR-MDRD 48; Glucose 103 mg/dL (83-110); Potassium 4.7 mmol/L (3.5-5.1); Sodium 136 mmol/L (136-145)
[2018-01-03 13:39] LABS: CKMB 1.8 ng/mL (0-6.6); Troponin I Less than 0.010 ng/mL (< 0.028)
[2018-01-03] MEDS ORDERED: Furosemide 40 MG/4 ML VIAL ONE (13:43)
--- NOTE | 2018-01-03 14:10 | RAD ---
CHEST 1 VIEW: Date: 01/03/18 HISTORY: Dyspnea. COMPARISON: 12/03/17. FINDINGS: Layering effusions. Heart size enlarged. Mild edema. No pneumothorax. IMPRESSION: Findings suggestive of decompensated congestive heart failure. POS: [facility]
[2018-01-03 14:56] LABS: Bilirubin Negative (Negative); Blood, Urine Negative (Negative); Clarity CLEAR (Clear); Glucose, Urine (Dipstick) Negative (Negative); Leukocyte Negative (Negative); Nitrite Negative (Negative); Protein, Urine (Dipstick) Negative (Neg-Trace); Specific Gravity, Urine 1.008 (1.002-1.036); Urobilinogen 0.2 mg/dL (0.2-1.0); pH, Urine 5.5 (5.0-9.0)
[2018-01-03] MEDS ORDERED: Acetaminophen 325 MG TAB PO PRN (16:03)
[2018-01-03] MEDS ORDERED: Ondansetron ODT 4 MG TAB SL PRN (16:03)
[2018-01-03] MEDS ORDERED: Ondansetron PF 4 MG/2 ML Vial IVP PRN (16:03)
[2018-01-03 18:05] VITALS: BMI 30.8
[2018-01-03] MEDS: Furosemide 40 MG/4 ML VIAL SLOW IVP SCH ×2 (18:06→22:23)
--- NOTE | 2018-01-03 22:11 | HP ---
Ms. Bowden is a 77-year-old female with a chief complaint of shortness of breath. HISTORY OF PRESENT ILLNESS: This is a patient of Dr. Fletcher Ribeiro, who came to the emergency room, thought she was having a problem with her asthma that turns out her beta natriuretic peptide over [address] Moore for her dry end tester and I discharged her back in September with a new onset of th is CHF with an EF that was 35% at that point. In the ER tonight, she has not had any changes to her EKG. There are no acute ischemic signs. Chest x-ray showed some effusions, but no pneumothorax. He art size was mildly enlarged. PAST MEDICAL HISTORY: Positive for type 2 diabetes, hypertension, congestive heart failure at this p oint known to be combined systolic and diastolic as well as hyperlipidemia. PAST SURGICAL HISTORY: Cholecystectomy and right knee replacement. ALLERGIES: She has no known drug allergies. CURRENT MEDICATIONS: Aspirin 81 mg a day, lovastatin 20 mg a day, diltiazem 90 mg 3 times a day, me tformin 1000 mg twice a day. SOCIAL HISTORY: She is a . Her in the last year or two. She is a former s moker, quit more than 10 years ago and she has several children that do live nearby. Her grandson is in the room with her today. FAMILY HISTORY: Positive for atherosclerotic coronary vascular disease as well as renal disease. REVIEW OF SYSTEMS: Essentially unremarkable. No fever or chills, headache, trouble chewing or swall owing. No vision changes, no cough, no hemoptysis. Denies any changes to bowel or bladder habits. No abdominal pain, no nausea or vomiting. No dysuria or hematuria. Denies any paresis or paresthesi as. No diaphoresis. Denies any homicidal or suicidal ideations. Denies any auditory or visual blanco ucinations. PHYSICAL EXAMINATION: VITAL SIGNS: Upon arrival to floor, temperature 97.8, pulse 88, respiration is 18, satting 96% on ro om air, BP is 135/63. LABORATORY DATA AND IMAGING DATA: White count is normal at 5.3, hemoglobin is 11.4 and hematocrit is 36.5. Platelet counts of 324,000, neutrophils 79.4, slightly elevated lymphocytes, slightly depress ed 13.8%. Her sodium is 136, potassium is 4.7, chloride 106, bicarbonate 19, BUN 16, creatinine 1.1, GFR is at 48, glucose at 103. AST 20, ALT is 23. CK is 31. CK-MB is 1.8. Troponins undetected. Beta natriuretic peptide as stated was 3767. Urine is negative. EKG showed no specific ST-T wave ch anges. No evidence of ischemia. ASSESSMENT AND PLAN: Congestive heart failure exacerbation with stage 3 renal insufficiency. Plan i s to diurese her. Also we will hold her metformin. We will have Dr. Ribeiro to decide how she wants t o handle that whether he gives a reduced dose or changes in the dose at all or totally change in his medicines. Of note, the patient and family reminded me that Dr. Moore had stated in the past that the y wanted to do a catheterization on her, but did not at that time because her hemoglobin was down in the 6s we were planning on doing a catheterization to map her vessels when her hemoglobin was improve d and with it being up at 11, we will remind Dr. Moore that she will be consulted.
[2018-01-03] MEDS ORDERED: HumaLOG 300 UNITS/3 ML VIAL SC PRN ×2 (22:19)
[2018-01-03] MEDS ORDERED: Dextrose 50% Abboject 50 ML SYRINGE IVP PRN (22:19)
[2018-01-03] MEDS ORDERED: Dextrose 5% in Water 1,000 ML IV PRN (22:19)
[2018-01-04] MEDS: Carvedilol 3.125 MG TAB PO SCH ×2 (08:50→20:31)
[2018-01-04] MEDS: Lisinopril 5 MG TAB PO SCH (08:50)
--- NOTE | 2018-01-04 11:54 | PRG ---
DATE OF SERVICE: 01/04/2018 SUBJECTIVE: Ms. Bowden is resting comfortably in bed. She feels much better. She has less shortne ss of breath. PHYSICAL EXAMINATION: VITAL SIGNS: Temperature is 98.0 and BP 134/68. LUNGS: Clear. HEART: Reveals a regular rate and rhythm without murmurs, gallops, or rubs. LABORATORY DATA: Hemoglobin 11.4, hematocrit 36.5. Sodium 136, potassium 4.7, chloride 106, CO2 is 19, BUN 16, creatinine 1.1. IMPRESSION: Exacerbation of congestive heart failure. PLAN: The patient is stable at this time. She has been awaiting cardiac catheterization. Dr. Moore has been consulted to consider this. At this time, her hemoglobin is now 11.1, which has been a limi ting factor. She will continue current medication plan.
[2018-01-04] MEDS ORDERED: Communication Order-Pharmacy FS SCH (16:00)
--- NOTE | 2018-01-04 18:06 | PDOC.CTH ---
Cardiology Progress Note - Subjective Pt. seen and eval. by me. No c/o at this time. She has an EF of 30-35% by echo. The BNP was > 3000. She also has diastolic dysfunction.Her SOB has improved after diuresis. When she was last seen she had significant anemia and that has improved after iron infusions. The plan was to perform cardiac cath when the HGB. was above 10. This appears stable and she is agreeable to proceed. - Objective Vital Signs Temp Pulse Resp BP BP Pulse Ox 01/04/18 15:35 98.1 F 87 15 128/60 96 01/04/18 11:10 98.0 F 71 16 126/60 93 L 01/04/18 07:25 97.9 F 72 15 148/67 H 95 Weight 158 lb 6.4 oz 01/03/18 01/04/18 01/05/18 06:59 06:59 06:59 Intake Total 340 Output Total 4300 Balance -3960 - Physical Examination General/Neuro: alert & oriented x3 Neck: carotid US brisk Lungs: CTA Heart: RRR Abdomen: no HSM, NT/ND - Telemetry Telemetry Rhythm: NSR - Labs Result Diagrams: 01/03/18 12:52 01/03/18 12:52 Troponin/CKMB CK-MB (CK-2) 1.8 ng/mL (0-6.6) 01/03/18 12:52 Troponin I Less than 0.010 ng/mL (< 0.028) 01/03/18 12:52 - Assessment/Plan 1. CHF exacerbation. Systolic and diastolic faifure. Improved after diuresis. Plan for cath tomorrrow to rule out severe CAD and to re-evaluate the LV function. 2. DM 3. HTN 4. Anemia - improved. The cardiac cath was discussed with the Pt. and her daughter. Risks include: bleeding,DE,CVA, allergic reaction, renal injury and .She agrees to proceed.
--- NOTE | 2018-01-04 20:27 | CON ---
DATE OF CONSULTATION: 01/04/2018 PRIMARY CARE PHYSICIAN: Fletcher Ribeiro MD PRIMARY FAMILY MEDICINE RESIDENT: Yesi Moore MD PRIMARY SUPERVISOR INDUSTRIAL GARMENT: Fadi Sánchez MD REFERRING PHYSICIAN: Silvio Tena MD REASON FOR CARDIOLOGY CONSULTATION: CHF exacerbation. HISTORY OF PRESENT ILLNESS: Ms. Bowden is a 77-year-old female with significant history of chronic systolic heart failure, cardiomyopathy, hypertension, diabetes type 2, hyperlipidemia, and chronic an emia. The patient was here in the hospital in 09/2017 for new onset of systolic congestive heart armando lure. At that time, the patient could not undergo cardiac catheterization due to severe anemia. The patient's echocardiogram was done in 10/[address] Moore' office, which shows EF 30%-35%, grade I di astolic dysfunction, severe mitral valve regurgitation, trace aortic valve insufficiency, mild global hypokinesis, and mild septal hypokinesis. At that time, the patient's hemoglobin level was 8.9. patient was told to hold cardiac catheterization at that time and repeat echocardiogram within 3 mo nths for possible defibrillator placement if the patient cannot undergo cardiac catheterization. The patient last , which is 12/31/2017, noticed that her shoes were really tight and also she stringer d mild shortness of breath. By Thursday, next day, she did not have any symptom; however, that y on 01/02/2018, she started having shortness of breath and she could not lie flat due to the worseni ng of shortness of breath; and Thursday morning, the patient presented to the Emergency Department for further evaluation and treatment. At that time, she thought she has worsening of asthma; however, sh e was told that she has worsening of acute on chronic systolic heart failure since the patient's BNP was more than 3700. The patient felt better and can breathe well with room air at this moment after she received Lasix IV, although she still has mild shortness of breath and has to raise the head of b ed when she is lying on the bed. She denies any cardiac complaints prior, during, or after exert. S he continues wearing the LifeVest since 09/2017 for low EF. The patient was seen by Dr. Sánchez, who is a utility manager, for anemia. The patient received 2 doses of iron infusion on 12/07/2017 and 11/24. Her hemoglobin level at this time is 11.4. The patient's echocardiogram in 10/2017 showed EF of 30%-35%, increased RV pressure, grade I diastoli c dysfunction, mild MAC, mild LV dilation, mild PI, mild tricuspid regurgitation, severe mitral valve regurgitation, trace aortic valve insufficiency, trivial pericardial effusion, mild global hypokines is, and mild septal hypokinesis. The patient had a stress test done in 09/2017, which shows no rever sible ischemia, but old scar to the mid and to the distal anterior septal to apex with EF 30%. Carot id Dopplers done in 06/2015, which shows no significant stenosis of bilateral ICA. PAST MEDICAL HISTORY: 1. Chronic systolic heart failure with LifeVest. 2. Hypertension. 3. Hyperlipidemia. 4. Type 2 diabetes. 5. Rheumatoid arthritis. 6. Chronic anemia. Status post 2 doses of iron infusion, last one on 12/14/2017. PAST SURGICAL HISTORY: 1. Right knee replacement. 2. Cataract extraction. 3. Cholecystectomy. FAMILY HISTORY: The patient's father of heart-related disease. The patient's mother deceas ed due to cardiac arrest at the age of 75. One of the patient's son has a history of CABG x4 at age of 60's. The male in her whole family have history of diabetes, hypertension, hyperlipidemia. SOCIAL HISTORY: The patient is a . She lives with grandson. Her son lives close by. She is a n ex-smoker. She quit smoking in the 1980s. She denies ETOH or illicit drug abuse. She used to be active until 09/2017. Since then, she has not done any activities and she has a sedentary lifestyle. She drinks two cups of coffee and 16 ounces of water every day. ALLERGIES: She is allergic to SHELLFISH and IRON SUPPLEMENTS, which cause diarrhea. HOME MEDICATIONS: Metformin 1000 mg twice a day, lovastatin 40 mg once a day, aspirin 81 mg once a d ay, carvedilol 6.25 mg twice a day, lisinopril 2.5 mg twice a day. REVIEW OF SYSTEMS: Twelve-point review of systems was negative, unless otherwise mentioned in the HP I. the patient states iron supplement causes diarrhea. She had to stop the medication after several dos e due to the severe diarrhea. PHYSICAL EXAMINATION: VITAL SIGNS: Blood pressure 126/60; temperature 98; pulse is 71, sinus rhythm; respiratory rate 16; O2 sat 93% on room air. GENERAL: The patient is alert, oriented x4, not in acute distress. HEAD: Normocephalic, atraumatic. EYES: Extraocular muscle movements are intact. ENMT: No mass. Oral and nasal mucosa are moist without lesion. NECK: Normal range of motion. No JVD. RESPIRATORY: Clear to auscultation bilateral. Diminished at the bases. CARDIOVASCULAR: Regular rate and rhythm. Normal S1, S2. No S3 or S4. No murmur, hives, thrill not ed. Carotid pulses are present. No bruit or thrill noted. Pulses in bilateral lower extremity is p resent. No edema. ABDOMEN: Soft and nontender. No mass to palpate. Bowel sounds are present. SKIN: Warm to dry. No lesion, bruise, erythema noticed. MUSCULOSKELETAL: The patient is able to move all extremities. The patient complained of muscle cram ps after the patient received Lasix, but the patient denied claudication. PSYCHIATRIC: The patient's mood is pleasant. NEUROLOGIC: Nonfocal. LABORATORY DATA: WBC 5.3, hemoglobin 11.4, hematocrit 36.5, platelets 324. Sodium 136, potassium 4. 7, BUN 16, creatinine 1.11, glucose 103, AST 20, ALT 23. Troponin level is negative. BNP are 3767 a nd 3369. Urine is negative. Chest x-ray is suggestive of decompensated congestive heart failure wit h mild edema. ASSESSMENT AND PLAN: 1. Acute on chronic systolic heart failure. The patient is stable with Lasix 40 mg every 6 hours, a nd the patient is on low-dose of beta ana and ACACIA inhibitor. The patient is going to undergo car diac catheterization tomorrow by Dr. Moore. The procedure and the risks of the procedure were explain ed to the patient and the family member, which included but not limited to infection, hemorrhage, per foration of the catheter, formation of thrombosis, CVA, CA, allergic reaction to IODINE, worsening of renal function with iodine, and possible . The patient and the patient's family voiced underst anding. The patient is going to receive prophylactic medication prior to cardiac catheterization due to history of allergic to SHELLFISH. 2. Cardiomyopathy. Again, the patient is going to have a cardiac catheterization tomorrow to determ ine the cause of the low EF. Continue to monitor on the telemetry at this moment. 3. Hypertension. The patient's blood pressure is stable at this moment. We would like to continue current medication. 4. Type 2 diabetes. The patient's metformin was discontinued due to slightly elevated creatinine le hieu. The patient is on before meals and at bedtime blood glucose check with sliding scale insulin or dered, which is managed by primary care doctor. 5. Hyperlipidemia. She is on Zocor. 6. Chronic anemia. The patient's hemoglobin level is stable at this moment. Last IV iron infusion done was 12/14/2017. 7. History of asthma. The patient's breathing is stable at this moment with room air. Thank you for allowing the Cardiology service to participate in the care of this patient. We will fo llow along with the patient care team and make further recommendations as appropriate. Again, massimo barrera is going to have the cardiac catheterization tomorrow by Dr. Moore in the morning.
[2018-01-04] MEDS: Simvastatin 5 MG TAB PO SCH (20:32)
[2018-01-04] MEDS ORDERED: Pantoprazole 40 MG VIAL IVP SCH (21:00)
[2018-01-05] MEDS: Carvedilol 3.125 MG TAB PO SCH ×3 (05:16→20:54)
[2018-01-05] MEDS: Lisinopril 5 MG TAB PO SCH (05:17)
[2018-01-05] MEDS ORDERED: Pantoprazole 40 MG VIAL IVP SCH (06:00)
[2018-01-05 06:11] LABS: ALT (SGPT) 17 U/L (8-55); AST (SGOT) 18 U/L (5-34); Alkaline Phosphatase 69 U/L (40-150); Anion Gap 14 mmol/L (10-20); BUN (Urea Nitrogen) 19 mg/dL (9.8-20.1); Bilirubin, Total 0.6 mg/dL (0.2-1.2); Calc. Creatinine Clearance 42 mL/min (70-130); Calcium 9.3 mg/dL (7.8-10.44); Carbon Dioxide 27 mmol/L (23-31); Chloride 101 mmol/L (98-107); Estimated GFR-MDRD 40; Globulin 3.2 g/dL (2.4-3.5); Glucose 177 mg/dL (83-110); Potassium 4.1 mmol/L (3.5-5.1); Protein, Total 7.2 g/dL (6.0-8.3); Sodium 138 mmol/L (136-145)
[2018-01-05 06:29] LABS: #Lymphocytes 0.5 thou/uL (1.20-3.40); #Monocytes 0.1 thou/uL (0.11-0.59); #Neutrophils 3.3 thou/uL (1.40-6.50); %Basophils 0.2 % (0.0-1.0); %Eosinophils 0.2 % (0.0-10.0); %Lymphocytes 11.9 % (21.0-51.0); %Monocytes 2.2 % (0.0-10.0); %Neutrophils 85.6 % (42.0-75.0); Anisocytosis SLIGHT = 6-15 cells (100X) (0-5/hpf); Elliptocytes SLIGHT = 2-5 cells (100X) (0-1/hpf); MDiff Complete? YES; Mean Corpuscular HGB CONC 31.6 g/dL (32.0-36.0); Mean Corpuscular Hemoglobin 27.9 pg (27.0-31.0); Mean Corpuscular Volume 88.2 fL (78.0-98.0); Mean Platelet Volume 9.1 fL (7.4-10.4); Platelet Count 321 thou/uL (130-400); RBC Distribution Width 20.6 % (11.5-14.5); Red Blood Cell (RBC) Count 4.32 mill/uL (4.20-5.40); White Blood Cell (WBC) Count 3.8 thou/uL (4.8-10.8)
[2018-01-05] MEDS ORDERED: Lidocaine 1% (PF) 30 ML VIAL ONE (06:55)
[2018-01-05] MEDS ORDERED: diphenhydrAMINE 50 MG/ML VIAL IVP SCH (07:00)
[2018-01-05] MEDS ORDERED: Nitroglycerin 100MG/250ML BOT 250 ML ONE (07:04)
[2018-01-05] MEDS ORDERED: Heparin 10,000 UNITS/1 ML VIAL ONE (07:04)
[2018-01-05] MEDS ORDERED: Verapamil 5 MG/2 ML VIAL ONE (07:04)
--- NOTE | 2018-01-05 08:54 | PDOC.CTH ---
Cardiology Progress Note - Subjective No new events. Cardiac cath performed this AM. Mild-moderate disease. Severe decrease in EF,global. No coronary invasive procedure indicated at this time. - Objective Vital Signs Temp Pulse Resp BP BP Pulse Ox 01/05/18 08:25 98 F 80 16 129/66 97 01/05/18 05:17 83 125/59 L 01/05/18 04:00 98.0 F 83 18 125/59 L 93 L Weight 158 lb 6.4 oz 01/04/18 01/05/18 01/06/18 06:59 06:59 06:59 Intake Total 340 Output Total 4300 Balance -3960 - Physical Examination General/Neuro: alert & oriented x3 Neck: carotid US brisk Lungs: CTA Heart: RRR Abdomen: NT/ND - Telemetry Telemetry Rhythm: NSR - Labs Result Diagrams: 01/05/18 04:58 01/05/18 04:58 Troponin/CKMB CK-MB (CK-2) 1.8 ng/mL (0-6.6) 01/03/18 12:52 Troponin I Less than 0.010 ng/mL (< 0.028) 01/03/18 12:52 - Assessment/Plan 1.CMY. Uncertain etiology. Order Life-Vest. Consult EP. Diagnosis present > 3 months. EF < 35%. 2. CAD. Continue medical management. No flow limiting disease. Calcifications. 3. HTN 4. DM 5. Anemia.
[2018-01-05] MEDS ORDERED: traMADol HCl 50 MG TAB PO PRN (09:09)
[2018-01-05] MEDS ORDERED: Sodium Chloride 0.9% 200 ML IV PRN (09:09)
[2018-01-05] MEDS ORDERED: Acetaminophen/Codeine 30-300mg Tablet PO PRN ×2 (09:09)
[2018-01-05] MEDS ORDERED: Nitroglycerin 0.4 MG TAB (25 Tab Bottle) SL PRN (09:09)
--- NOTE | 2018-01-05 12:25 | PRG ---
DATE OF SERVICE: 01/05/2018 Ms. Bowden underwent a cardiac catheterization today which showed no evidence of any procedural base d disease process that could be obtained. She does have a decreased global ejection fraction of abou t 35%. Otherwise, no other medical complaints are noted. She is now post procedure. PHYSICAL EXAMINATION: VITAL SIGNS: BP 143/71, temperature 98.0. LUNGS: Clear. HEART: Reveals no murmur. LABORATORY: Her hemoglobin is 12.0, hematocrit 38.1, creatinine is still elevated 1.31. IMPRESSION: 1. Atherosclerotic coronary artery disease. 2. Congestive heart failure. 3. Decreased ejection fraction. 4. Type 2 diabetes mellitus. 5. Renal insufficiency. PLAN: 1. She has had the possibility of defibrillator discussed with the electrophysiology, has not made a decision yet. 2. With regard to her renal insufficiency we will go through her medicines. Probably will stop her metformin today and follow her blood sugars along. Further recommendations for treatment will be bas ed on whether she proceeds with a defibrillator.
--- NOTE | 2018-01-05 12:28 | PQF ---
CLINICAL DOCUMENTATION IMPROVEMENT CLARIFICATION FORM: ICD-10 Updated PLEASE DO AN ADDENDUM TO THE PROGRESS NOTE WITH ANY DOCUMENTATION UPDATES OR ADDITIONS AND CARRY THROUGH TO DC SUMMARY. THANK YOU. DATE: 01/05 ATTN: DR. MONA ACHARYA Please exercise your independent, professional judgment in responding to the clarification form. Clinical indicators are provided on the bottom of this form for your review. Please check appropriate box(s): [ ] Acute on Chronic Renal Failure please specify Stage of CKD (see below) [ ] CKD without ARF/ROSALINA please specify Stage of CKD [ ] Other diagnosis [ ] Unable to determine National Kidney Foundation Guidelines for CKD Staging Stage I Kidney damage with normal or increased GFR GFR > 90 Stage II Kidney damage with mildly decreased GFR GFR 60-89 Stage III Kidney damage with moderately decreased GFR GFR 30-59 Stage IV Kidney damage with severely decreased GFR GFR 16-29 Stage V Kidney failure GFR<15 ESRD End Stage Renal Disease On dialysis For continuity of documentation, please document condition throughout progress notes and discharge summary. Thank You. CLINICAL INDICATORS - SIGNS / SYMPTOMS / LABS BUN: 16 CR: 1.11 GFR: 48 (01/03) 19 1.31 40 (01/05) 25 1.34 39 (01/06) PHYSICIAN H&P DOCUMENTATION (NICOLE) 01/03: ASSESSMENT & PLAN: CHF EXACERBATION WITH STAGE 3 RENAL INSUFFICIENCY (NON-SPECIFIC TERMINOLOGY) RISK FACTORS: ACUTE ON CHRONIC SYSTOLIC CHF DM II HTN IV LASIX (ON FLOOR 2 DOSES & 1 DOSE IN ER 01/03) TREATMENT: SERIAL LABS THANK YOU! Tori (This form is maintained as a part of the permanent medical record) 2014 [employer]. All Rights Reserved Tori Pires RN, BSN [email or web address] Office: [phone] [facility]
--- NOTE | 2018-01-05 14:02 | CON ---
DATE OF CONSULTATION: 01/05/2018 REFERRING PHYSICIAN: Dr. Yesi Moore CONSULTING PHYSICIAN: Dr. Jesus Miranda REASON FOR CONSULTATION: Ischemic cardiomyopathy with severely reduced ejection fraction, left bundl e branch block. HISTORY OF PRESENT ILLNESS: Ms. Bowden is a very pleasant 77-year-old woman who has been a longtime patient of Dr. Moore. She was initially found to have a severely reduced ejection fraction in 8. Her EF was documented at 30%. Repeat study by a 2-dimensional echocardiogram in October showed an ejection fraction of 30-35%. She has been medically managed since September, which may not be entir vineet optimized due to her chronic renal disease. That being said, her medications are as optimized as possible given her specific case. She has chronic shortness of breath. She recently had a left hea rt catheterization that showed moderate coronary artery disease that can be medically managed and no indication for intervention at this time. It is not thought to be a factor in her heart failure or h er cardiomyopathy. She also follows with Dr. Sánchez, a foot specialist, for her anemia and has receive d 2 doses of iron infusion last month. She is being evaluated for possible defibrillator today. Ms. Bowden is currently feeling well. She is resting in bed. She has a TR band on her wrist from a recent left heart catheterization. She do es endorse some shortness of breath which is chronic for her, but does not have any additional cardia c concerns or complaints today. She presented to the emergency room for shortness of breath and was found to have BNP over 3700. She was admitted for congestive heart failure and further monitoring an d management. REVIEW OF SYSTEMS: Essentially unremarkable today. She denies any fevers, chills, malaise, weight l oss, vision changes, speech changes, difficulty swallowing or appetite changes. Positive for chronic shortness of breath. Negative for productive cough or chronic cough. Negative for heart racing, pa lpitations, chest pain, pressure, syncope, near syncope, stroke or stroke like symptoms. Negative fo r nausea, vomiting, diarrhea. Negative for unilateral weakness, migraines, paresthesias, numbness or tingling. PAST MEDICAL HISTORY: 1. Chronic systolic heart failure diagnosed in 09/2017, currently wearing a LifeVest. 2. Hypertension. 3. Hyperlipidemia. 4. Type 2 diabetes. 5. Rheumatoid arthritis. 6. Chronic anemia. 7. Chronic cardiomyopathy with severely reduced ejection fraction of less than 35%. FAMILY HISTORY: Father passed from heart related disease. Mother passed from cardiac arrest at age 75. Son had bypass in his 60s. All men in her family have diabetes, hypertension, and hyperlipidemi a. SOCIAL HISTORY: She is , lives with a grandson. Her son is also nearby. She is a prior smok er, but quit in the . Denies alcohol or illicit drug use. Currently sedentary lifestyle. Nega tive for illicit drug or alcohol use. ALLERGIES: SHELLFISH. HOME MEDICATIONS: Carvedilol 6.25 mg p.o. b.i.d., aspirin 81 mg p.o. daily, Zestril 2.5 mg b.i.d., f errous gluconate 324 mg p.o. b.i.d., metformin 1000 mg p.o. b.i.d. with meals and Mevacor 40 mg p.o. at bedtime. PHYSICAL EXAMINATION: VITAL SIGNS: Most recent vital signs; 98.2, pulse 81, respirations 15, oxygen 97% on 2 liters via na nirali cannula, Blood pressure is 131/67. GENERAL: This is an elderly woman who appears much older than her stated age. She is a petite, some what frail in appearance, but she is alert and oriented and is a good historian. NECK: Supple without jugular venous distention. The thyroid is nonpalpable. LUNGS: Have bibasilar crackles. Respirations are even and unlabored with good bilateral excursion. HEART: Rate is regularly irregular. No significant murmur, rubs or gallops are appreciated. EXTREMITIES: Warm and dry to touch without clubbing, cyanosis or edema. ABDOMEN: Soft, nontender without palpable masses. Hepatojugular reflex is negative. NEUROLOGIC: Cranial nerves II-XII is grossly intact and nonfocal. DATABASE: Hematology was reviewed and hemoglobin is 12.0, hematocrit 38.1, platelet count is 321. W BC 3.8. Chemistry essentially stable. Potassium is 4.1, creatinine is 1.3, it was 1.1 on admission. Telemetry and EKGs were all personally reviewed which shows sinus rhythm with a left bundle branch bl ock, QRS duration is 132 milliseconds. IMPRESSION: 1. Ischemic cardiomyopathy with ejection fraction of 30-35%. 2. Left bundle branch block. 3. Recent left heart catheterization, no intervention indicated. 4. Chronic renal insufficiency. 5. Congestive heart failure with an elevated BNP of over 3500. RECOMMENDATIONS: 1. Continue with the Cardiology recommendations for heart failure management. 2. Recommend a biventricular ICD placement either as an inpatient or outpatient. We discussed this with the patient and her family. She is entertaining keeping the LifeVest on through holidays and do ing a device implant to the new year. With her left bundle branch block and chronic shortness of vasquez ath recommendation would be for doing this sometime in the next month, but as mentioned, this can be done during this hospital stay or be arranged as an outpatient based on her preferences. Thank you for allowing us to participate in the care of this patient.
[2018-01-05] MEDS ORDERED: Iopamidol 370 76% 100 ML VIAL ONE (16:30)
[2018-01-05] MEDS: Simvastatin 5 MG TAB PO SCH (20:54)
[2018-01-06 05:29] LABS: Anion Gap 12 mmol/L (10-20); BUN (Urea Nitrogen) 25 mg/dL (9.8-20.1); Calc. Creatinine Clearance 41 mL/min (70-130); Calcium 9.3 mg/dL (7.8-10.44); Carbon Dioxide 28 mmol/L (23-31); Chloride 104 mmol/L (98-107); Estimated GFR-MDRD 39; Glucose 96 mg/dL (83-110); Sodium 139 mmol/L (136-145)
--- NOTE | 2018-01-06 08:23 | PRG ---
DATE OF SERVICE: 01/06/2018 Ms. Bowden underwent cardiac catheterization yesterday that showed non-procedural based cardiac dise ase. She does have a decreased ejection fraction. It is felt she would benefit from an AICD placeme nt. She is to considering this and would like to proceed. We are awaiting word from EP whether this will go today or not. PHYSICAL EXAMINATION: VITAL SIGNS: Blood pressure 120/60, pulse 75, temperature 97.8. LUNGS: Clear. HEART: Reveals no murmur. LABORATORY: Creatinine 1.34. IMPRESSION: 1. Congestive heart failure. 2. Atherosclerotic coronary artery disease. 3. Cardiomyopathy with decreased ejection fraction. PLAN: Hopefully can place AICD today with pacing per EP recommendations.
[2018-01-06] MEDS: Carvedilol 3.125 MG TAB PO SCH ×2 (08:35→15:20)
[2018-01-06] MEDS ORDERED: Lisinopril 5 MG TAB PO SCH (09:00)
[2018-01-06 15:19] VITALS: BP 132/62; TEMP 97.8
--- NOTE | 2018-01-06 16:09 | PDOC.CTH ---
Cardiology Progress Note - Subjective The pt seen and examined. No overnight events. No cardiac complaints. - Objective Vital Signs Temp Pulse Pulse Pulse Resp BP BP 01/06/18 15:19 97.8 F 83 15 01/06/18 11:20 97.4 F L 15 01/06/18 11:10 80 84 145/61 H 125/56 L 01/06/18 08:35 77 01/06/18 08:27 98.0 F 77 16 BP BP Pulse Ox Pulse Ox Pulse Ox 01/06/18 15:19 132/62 98 01/06/18 11:20 125/56 L 99 01/06/18 11:10 98 97 01/06/18 08:35 01/06/18 08:27 133/75 99 Weight 150 lb 8 oz 01/05/18 01/06/18 01/07/18 06:59 06:59 06:59 Intake Total 780 Balance 780 - Physical Examination General/Neuro: alert & oriented x3 Neck: no JVD present Lungs: CTA Heart: RRR Abdomen: soft Extremities: other: (mild BLE edema) - Telemetry Telemetry Rhythm: SR - Labs Result Diagrams: 01/05/18 04:58 01/06/18 04:24 Troponin/CKMB CK-MB (CK-2) 1.8 ng/mL (0-6.6) 01/03/18 12:52 Troponin I Less than 0.010 ng/mL (< 0.028) 01/03/18 12:52 - Assessment/Plan 1. Acute on Chronic systolic HF - S/p LHC on 01/05/18 with normal coronaries. Plan for BiV AICD placement within 2wks by Dr Miranda. Improved after diuretic. 2. DM type 2 - stable 3. HTN - stable 4. Anemia - improved. MAR reviewed Review of Systems - Review of Systems Constitutional: reports: no symptoms reported EENTM: reports: no symptoms reported Respiratory: reports: no symptoms reported Cardiac (ROS): reports: no symptoms reported ABD/GI: reports: no symptoms reported : reports: no symptoms reported Musculoskeletal: reports: no symptoms reported
--- NOTE | 2018-01-06 16:13 | PDOC.CTH ---
Cardiology Progress Note - Subjective EP progress note: Patient seen and evaluated. No new cardiac concerns or complaints today. Denies heart racing, palpitations, chest pain/pressure, dizziness, or passing out. No stroke like symptoms. - Objective Vital Signs Temp Pulse Pulse Pulse Resp BP BP 01/06/18 15:19 97.8 F 83 15 01/06/18 11:20 97.4 F L 15 01/06/18 11:10 80 84 145/61 H 125/56 L 01/06/18 08:35 77 01/06/18 08:27 98.0 F 77 16 BP BP Pulse Ox Pulse Ox Pulse Ox 01/06/18 15:19 132/62 98 01/06/18 11:20 125/56 L 99 01/06/18 11:10 98 97 01/06/18 08:35 01/06/18 08:27 133/75 99 Weight 150 lb 8 oz 01/05/18 01/06/18 01/07/18 06:59 06:59 06:59 Intake Total 780 Balance 780 - Physical Examination General/Neuro: alert & oriented x3, NAD Neck: carotid US brisk, no JVD present Lungs: CTA, unlabored respirations Heart: PMI normal, RRR Abdomen: NT/ND, soft - Telemetry Telemetry Rhythm: SR - Labs Result Diagrams: 01/05/18 04:58 01/06/18 04:24 Troponin/CKMB CK-MB (CK-2) 1.8 ng/mL (0-6.6) 01/03/18 12:52 Troponin I Less than 0.010 ng/mL (< 0.028) 01/03/18 12:52 - Assessment/Plan 1. Ischemic cardiomyopathy, EF 30-35% 2. LBBB 3. Normal LHC 4. Chronic renal insuffiency 5. CHF with exacerbation Discussed BiV ICD with patient and family members at length. Will keep lifevest in place for now and schedule for outpatient procedure in near future. Had recent dye load with LHC. Will allow this to clear before she receives more dye during venogram with device implant. OK for DC by EP.
== END 2018-01-06 15:37 | disposition home or self-care (01) | DRG 286 ==
LOC: ERS 12:17 → 2NO 16:07
PROVIDERS: ADMIT Family Medicine; ATTEND Family Medicine
PROC: 4A023N7 Measurement of Cardiac Sampling and Pressure, Left Heart, Percutaneous Approach (ICD-10-PCS; principal; 2018-01-03)
PROC: B2111ZZ Fluoroscopy of Multiple Coronary Arteries using Low Osmolar Contrast (ICD-10-PCS; 2018-01-03)
PROC: B2151ZZ Fluoroscopy of Left Heart using Low Osmolar Contrast (ICD-10-PCS; 2018-01-03)
DX: I13.0 Hypertensive heart and chronic kidney disease with heart failure and stage 1 through stage 4 chronic kidney disease, or unspecified chronic kidney disease (principal); I50.43 Acute on chronic combined systolic (congestive) and diastolic (congestive) heart failure; N18.3 Chronic kidney disease, stage 3 (moderate); E11.22 Type 2 diabetes mellitus with diabetic chronic kidney disease; E78.5 Hyperlipidemia, unspecified; J45.909 Unspecified asthma, uncomplicated; I25.5 Ischemic cardiomyopathy; M06.9 Rheumatoid arthritis, unspecified; D63.1 Anemia in chronic kidney disease; I25.10 Atherosclerotic heart disease of native coronary artery without angina pectoris; I44.7 Left bundle-branch block, unspecified
CPT/HCPCS: 36415; 36416; 71045; 80048; 80053; 81003; 82550; 82553; 83880; 84484; 85025; 93005; 93458; 93798; 96374; C1769; C9113; J1200; J1644; J1940; J2001; J2920

== ENCOUNTER 2020-06-18 15:23 | Outpatient (CLI) | payer MEDICARE | END 2020-06-18 15:24 | disposition home or self-care (01) | LOC: BICULT 15:23 | PROVIDERS: ATTEND Internal Medicine Cardiovascular Disease | DX: E04.1 Nontoxic single thyroid nodule (principal) | CPT/HCPCS: 76536 ==